=== PATIENT | female | born 1980 | race Caucasian/White ===

== ENCOUNTER 2017-07-23 14:55 | Emergency (ER) | payer OTHER, BC ==
[~2017-07-23] VITALS: Ht 160 cm; Wt 75.4 kg
[2017-07-23 15:04] VITALS: BP 145/111
== END 2017-07-23 15:22 | disposition left against medical advice (07) ==
LOC: EME → EDBD 14:55 → EME 15:22
DX: T40.1X1A Poisoning by heroin, accidental (unintentional), initial encounter (principal); R41.82 Altered mental status, unspecified; R06.81 Apnea, not elsewhere classified; Z53.21 Procedure and treatment not carried out due to patient leaving prior to being seen by health care provider
CPT/HCPCS: J2310